=== PATIENT | female | born 1995 | race Caucasian/White ===

== ENCOUNTER → 2020-03-18 | Outpatient (CLI) | payer SELFPAY | LOC: M LABSMTC 14:09 | PROVIDERS: ATTEND Pediatrics | DX: Z20.828 Contact with and (suspected) exposure to other viral communicable diseases (principal) ==

== ENCOUNTER → 2021-10-21 | Outpatient (CLI) | payer BC ==
[2021-10-21 16:13] LABS: HEMATOCRIT 44.2 % (36.0-47.0); HEMOGLOBIN 14.5 g/dl (12.0-15.5); MEAN CORPUSCULAR HEMOGLOBIN 28.3 pg (27.0-33.0); MEAN CORPUSCULAR HGB CONC 32.8 g/dl (32.0-36.5); MEAN CORPUSCULAR VOLUME 86.3 fl (80.0-96.0); PLATELET COUNT, AUTOMATED 322 10^3/uL (150-450); RED BLOOD COUNT 5.12 10^6/uL (4.00-5.40); WHITE BLOOD COUNT 5.8 10^3/uL (4.0-10.0)
[2021-10-21 16:45] LABS: ALBUMIN 3.8 GM/DL (3.2-5.2); ALT/SGPT 31 U/L (12-78); BILIRUBIN,TOTAL 0.5 MG/DL (0.2-1.0); BLOOD UREA NITROGEN 10 MG/DL (7-18); CALCIUM LEVEL 9.4 MG/DL (8.5-10.1); CARBON DIOXIDE LEVEL 28 MEQ/L (21-32); CHLORIDE LEVEL 106 MEQ/L (98-107); CREATININE FOR GFR 0.92 MG/DL (0.55-1.30); FERRITIN 47 NG/ML (8-252); FREE T4 1.11 NG/DL (0.76-1.46); GLOMERULAR FILTRATION RATE > 60.0 (>60); GLUCOSE, FASTING 88 MG/DL (70-100); IRON (FE) 103 UG/DL (50-170); PERCENT SATURATION 31.9 % (13.2-45.0); POTASSIUM SERUM 4.4 MEQ/L (3.5-5.1); SODIUM LEVEL 141 MEQ/L (136-145); TOTAL IRON BINDING CAPACITY 323 UG/DL (250-450); TOTAL PROTEIN 7.4 GM/DL (6.4-8.2)
[2021-10-21 16:51] LABS: TOTAL 25(OH) VITAMIN D 32.1 NG/ML (30.0-100.0)
[2021-10-21 17:48] LABS: ATYPICAL LYMPH 1 % (0-5); LYMPHOCYTES 46 % (16-44); MONOCYTES 4 % (0-5); NEUTROPHILS 49 % (28-66); PLATELET ESTIMATE NORMAL (NORMAL)
== END ==
LOC: M WUC 13:07
PROVIDERS: ATTEND Physician Assistant
DX: N93.9 Abnormal uterine and vaginal bleeding, unspecified (principal); R63.5 Abnormal weight gain

== ENCOUNTER 2021-10-23 11:49 | Emergency (ER) | payer BC ==
[~2021-10-23] VITALS: Ht 165.1 cm; Wt 63.6 kg
[2021-10-23] MEDS ORDERED: MIRE1IUD IU (11:58)
[2021-10-23] MEDS ORDERED: ONDANSETRON 4MG/2ML VIAL IV ONE (13:00)
[2021-10-23] MEDS ORDERED: ONDANSETRON 4MG ORAL DISINTEGRATING TAB PO ONE (13:05)
[2021-10-23 13:53] LABS: MONO SCRN NEGATIVE (NEGATIVE)
[2021-10-23] MEDS ORDERED: LIDOCAINE 1% MDV 20ML VIAL SC ONE (14:00)
[2021-10-23] MEDS ORDERED: BOOSTRIX/ADACEL VACCINE (DIPHTH/PERTUSS/ACELL/TETANUS) 0.5ML SYR IM ONE (14:10)
[2021-10-23] MEDS ORDERED: ONDA4TAB6 PO (15:08)
[2021-10-23] MEDS ORDERED: CEPH500C PO (15:08)
[2021-10-23] MEDS ORDERED: NEOSPORIN OINT 0.9 GM PKT TOP ONE (15:10)
[2021-10-23] MEDS ORDERED: CEPHALEXIN 500 MG CAP PO ONE (15:10)
[2021-10-23 15:11] VITALS: BP 131/76
== END 2021-10-23 15:20 | disposition home or self-care (01) ==
LOC: M ED 11:49
DX: S01.419A Laceration without foreign body of unspecified cheek and temporomandibular area, initial encounter (principal); S00.81XA Abrasion of other part of head, initial encounter; S06.0X0A Concussion without loss of consciousness, initial encounter; W17.89XA Other fall from one level to another, initial encounter; W22.8XXA Striking against or struck by other objects, initial encounter

== ENCOUNTER → 2021-11-04 | Outpatient (CLI) | payer BC, OTHER ==
[~2021-11-04] MED LIST: CEPH500C PO; MIRE1IUD IU; ONDA4TAB6 PO
== END ==
LOC: M WHC 09:26
PROVIDERS: ATTEND Family Medicine
DX: E04.1 Nontoxic single thyroid nodule (principal)

== ENCOUNTER 2022-01-08 22:43 | Emergency (ER) | payer BC, OTHER ==
[~2022-01-08] VITALS: Ht 167.6 cm; Wt 65.9 kg
[2022-01-09 02:53] VITALS: BP 140/94
== END 2022-01-09 03:51 | disposition left against medical advice (07) ==
LOC: M ED 22:43
DX: Z53.21 Procedure and treatment not carried out due to patient leaving prior to being seen by health care provider (principal)

== ENCOUNTER → 2022-07-21 | Outpatient (CLI) | payer BC, OTHER | LOC: M WHC 09:28 | PROVIDERS: ATTEND Family Medicine | DX: M79.662 Pain in left lower leg (principal) ==

== ENCOUNTER → 2022-10-07 | Outpatient (REF) | payer BC | LOC: M LAB REF 15:23 | PROVIDERS: ATTEND Family Medicine | DX: N76.0 Acute vaginitis (principal) ==

== ENCOUNTER → 2022-10-20 | Outpatient (CLI) | payer BC | LOC: M RAD 10:27 | PROVIDERS: ATTEND Family Medicine | DX: M79.662 Pain in left lower leg (principal) ==

== ENCOUNTER → 2022-10-25 | Outpatient (REF) | LOC: M EMP 11:37 | PROVIDERS: ATTEND Family Medicine | DX: Z11.52 Encounter for screening for COVID-19 (principal) ==

== ENCOUNTER → 2023-02-01 | Outpatient (CLI) | payer BC | LOC: M PLAIMG 07:52 | PROVIDERS: ATTEND Family Medicine | DX: M54.12 Radiculopathy, cervical region (principal) ==

== ENCOUNTER → 2023-03-01 | Outpatient (REF) | payer BC | LOC: M LAB REF 09:32 | PROVIDERS: ATTEND Physician Assistant | DX: R19.7 Diarrhea, unspecified (principal) ==

== ENCOUNTER → 2023-03-06 | Outpatient (REF) | LOC: M EMP 07:57 | PROVIDERS: ATTEND Family Medicine | DX: Z11.52 Encounter for screening for COVID-19 (principal) ==

== ENCOUNTER → 2023-03-06 | Outpatient (REF) | LOC: M EMP 07:56 | PROVIDERS: ATTEND Family Medicine | DX: Z11.52 Encounter for screening for COVID-19 (principal) ==

== ENCOUNTER → 2023-04-18 | Outpatient (CLI) | payer BC ==
[~2023-04-18] MED LIST changes: +PROB250C PO; +PROHANCE 279.3MG/ML 15ML VIAL As Ordered ONE
== END ==
LOC: M RAD 08:56
PROVIDERS: ATTEND Internal Medicine Medical Oncology
DX: M79.89 Other specified soft tissue disorders (principal)
CPT/HCPCS: 73720; A9576

== ENCOUNTER → 2023-05-09 | Outpatient (REF) ==
[~2023-05-09] MED LIST changes: -PROHANCE 279.3MG/ML 15ML VIAL As Ordered ONE
== END ==
LOC: M EMP 07:45
PROVIDERS: ATTEND Family Medicine
DX: Z11.52 Encounter for screening for COVID-19 (principal)

== ENCOUNTER → 2023-05-30 | Outpatient (REF) | payer BC | LOC: M PLALAB 16:06 | PROVIDERS: ATTEND Advanced Practice Midwife | DX: Z12.4 Encounter for screening for malignant neoplasm of cervix (principal); Z01.419 Encounter for gynecological examination (general) (routine) without abnormal findings; Z77.9 Other contact with and (suspected) exposures hazardous to health ==

== ENCOUNTER → 2023-08-31 | Outpatient (CLI) | payer BC ==
[2023-08-31 15:42] LABS: HEMATOCRIT 44.1 % (36.0-47.0); HEMOGLOBIN 14.6 g/dl (12.0-15.5); MEAN CORPUSCULAR HEMOGLOBIN 29.1 pg (27.0-33.0); MEAN CORPUSCULAR HGB CONC 33.1 g/dl (32.0-36.5); PLATELET COUNT, AUTOMATED 305 10^3/uL (150-450); RED BLOOD COUNT 5.01 10^6/uL (4.00-5.40); WHITE BLOOD COUNT 10.6 10^3/uL (4.0-10.0)
[2023-08-31 16:47] LABS: HIV 1&2 SCREEN NEGATIVE (NEGATIVE)
[2023-08-31 16:55] LABS: HEPATITIS C VIRUS ABY INDEX < 0.02 INDEX (<0.8)
[2023-08-31 17:18] LABS: GC DNA AMPLIFICATION NEGATIVE (NEGATIVE)
== END ==
LOC: M PLALAB 12:47
PROVIDERS: ATTEND Advanced Practice Midwife
DX: Z34.01 Encounter for supervision of normal first pregnancy, first trimester (principal)

== ENCOUNTER → 2023-09-20 | Outpatient (CLI) | payer BC | LOC: M WHC 07:37 | PROVIDERS: ATTEND Advanced Practice Midwife | DX: Z34.01 Encounter for supervision of normal first pregnancy, first trimester (principal) ==

== ENCOUNTER → 2023-11-23 | Outpatient (CLI) | payer BC ==
[~2023-11-23] MED LIST changes: +ONDA-282 PO; -ONDA4TAB6 PO
== END ==
LOC: M WHC 08:54
PROVIDERS: ATTEND Advanced Practice Midwife
DX: Z34.02 Encounter for supervision of normal first pregnancy, second trimester (principal)

== ENCOUNTER → 2023-12-18 | Outpatient (CLI) | payer BC | LOC: M RAD 13:11 | PROVIDERS: ATTEND Orthopaedic Surgery | DX: M79.605 Pain in left leg (principal); M79.89 Other specified soft tissue disorders ==

== ENCOUNTER → 2024-01-01 | Outpatient (REF) | LOC: M EMP 10:35 | PROVIDERS: ATTEND Family Medicine | DX: Z11.52 Encounter for screening for COVID-19 (principal) ==

== ENCOUNTER → 2024-01-19 | Outpatient (CLI) | payer BC ==
[~2024-01-19] MED LIST changes: +CHOL650T PO; +PRENTAB9 PO; +TUMS500C PO
[2024-01-19 15:34] LABS: GLUCOSE CHALLENGE TEST 1 HOUR 140 MG/DL (LESS THAN 140); HEMOGLOBIN 13.2 g/dl (12.0-15.5); MEAN CORPUSCULAR HEMOGLOBIN 30.3 pg (27.0-33.0); MEAN CORPUSCULAR HGB CONC 34.7 g/dl (32.0-36.5); MEAN CORPUSCULAR VOLUME 87.2 fl (80.0-96.0); PLATELET COUNT, AUTOMATED 249 10^3/uL (150-450); RED BLOOD COUNT 4.36 10^6/uL (4.00-5.40); WHITE BLOOD COUNT 11.2 10^3/uL (4.0-10.0)
[2024-01-19 16:54] LABS: GC DNA AMPLIFICATION NEGATIVE (NEGATIVE)
[2024-01-20 17:09] LABS: HIV 1&2 SCREEN NEGATIVE (NEGATIVE)
[2024-01-20 17:17] LABS: HEPATITIS C VIRUS ABY INDEX < 0.02 INDEX (<0.8)
== END ==
LOC: M PLALAB 11:46
PROVIDERS: ATTEND Advanced Practice Midwife
DX: Z34.82 Encounter for supervision of other normal pregnancy, second trimester (principal); Z3A.00 Weeks of gestation of pregnancy not specified

== ENCOUNTER → 2024-01-23 | Outpatient (REF) | payer BC | LOC: M SFHCWAGY 12:30 | PROVIDERS: ATTEND Advanced Practice Midwife | DX: Z34.03 Encounter for supervision of normal first pregnancy, third trimester (principal) ==

== ENCOUNTER → 2024-01-24 | Outpatient (CLI) | payer BC | LOC: M LAB 07:36 | PROVIDERS: ATTEND Advanced Practice Midwife | DX: O99.810 Abnormal glucose complicating pregnancy (principal); Z3A.00 Weeks of gestation of pregnancy not specified ==

== ENCOUNTER 2024-01-30 18:13 | Outpatient (CLI) | payer BC ==
[~2024-01-30] VITALS: Ht 167.6 cm; Wt 83.6 kg
[2024-01-30] VITALS (13 sets, daily range): BP systolic 121–172; BP diastolic 64–94
[~2024-01-30 18:13] MED LIST changes: -CHOL650T PO; -PRENTAB9 PO; -TUMS500C PO
[2024-01-30] MEDS ORDERED: PRENTAB9 PO (18:30)
[2024-01-30] MEDS ORDERED: TUMS500C PO (18:30)
[2024-01-30] MEDS ORDERED: CHOL650T PO (18:31)
[2024-01-30] MEDS: NIFEdipine 10 MG CAP PO STA (18:58)
[2024-01-30 19:47] LABS: HEMATOCRIT 37.3 % (36.0-47.0); MEAN CORPUSCULAR HEMOGLOBIN 30.2 pg (27.0-33.0); MEAN CORPUSCULAR HGB CONC 34.9 g/dl (32.0-36.5); MEAN CORPUSCULAR VOLUME 86.5 fl (80.0-96.0); PLATELET COUNT, AUTOMATED 216 10^3/uL (150-450); RED BLOOD COUNT 4.31 10^6/uL (4.00-5.40); WHITE BLOOD COUNT 11.5 10^3/uL (4.0-10.0)
[2024-01-30 20:03] LABS: CREATININE,RANDOM URINE < 13.0 MG/DL; TOTAL PROTEIN,RANDOM URINE < 6.0 MG/DL (0.0-14.0)
[2024-01-30 20:12] LABS: URIC ACID 2.9 MG/DL (3.1-7.8)
[2024-01-30 20:15] LABS: ALT/SGPT 21 U/L (7.0-40); AST/SGOT 10 U/L (<34); BILIRUBIN,TOTAL 0.4 MG/DL (0.3-1.2); CREATININE FOR GFR 0.61 MG/DL (0.55-1.30); GLOMERULAR FILTRATION RATE > 60.0 (>60); LDH LACTATE DEHYDROGENASE 153 U/L (120-246)
[2024-01-30] MEDS: CALCIUM CARBONATE 500 MG CHEW U/D PO ONE (20:55)
[2024-01-30 20:56] LABS: ALBUMIN 2.8 G/DL (3.2-5.2); ALKALINE PHOSPHATASE 76 U/L (46-116); BLOOD UREA NITROGEN 11 MG/DL (9-23); CALCIUM LEVEL 10.2 MG/DL (8.5-10.1); CARBON DIOXIDE LEVEL 22 MMOL/L (20-31); CHLORIDE LEVEL 107 MMOL/L (98-107); GLUCOSE, FASTING 75 MG/DL (60-100); POTASSIUM SERUM 3.6 MMOL/L (3.5-5.1); SODIUM LEVEL 138 MMOL/L (136-145); TOTAL PROTEIN 6.3 G/DL (5.7-8.2)
[2024-01-30] MEDS: MAG Sulf (L&D) 4 GM/100 ML 4 GM in IV 1 EA IV ONE (23:09)
[2024-01-30] MEDS: BETAMETHASONE SOLUSPAN 6MG/ML 5ML VIAL IM SCH (23:10)
[2024-01-30] MEDS: MAG Sulf (OBGYN) 20GM/500ML 20,000 MG in IV 1 EA IV SCH (23:32)
[2024-01-31] MEDS ORDERED: ONDANSETRON 4MG 2ML VIAL IV ONE
== END 2024-01-30 23:46 | disposition short-term general hospital (02) ==
LOC: M LDO 18:13 → M LDI 18:13 → UNDOADMIN 19:01 → M LDO 23:46 → UNDODISIN 23:46
PROVIDERS: ATTEND Obstetrics & Gynecology
DX: O14.12 Severe pre-eclampsia, second trimester (principal); Z3A.28 28 weeks gestation of pregnancy
CPT/HCPCS: 36415; 59025; 80053; 82247; 82570; 83615; 83880; 84156; 84450; 84460; 84484; 84550; 85027; 87486; 87581; 87633; 87798; 93005; G0463; J0702; J3475

== ENCOUNTER → 2024-02-07 | Outpatient (CLI) | payer BC ==
[~2024-02-07] MED LIST changes: +CHOL650T PO; +PRENTAB9 PO; +TUMS500C PO
[2024-02-07 10:54] LABS: LDH LACTATE DEHYDROGENASE 137 U/L (120-246)
[2024-02-07 10:56] LABS: ALT/SGPT 16 U/L (7.0-40); AST/SGOT < 8 U/L (<34); BILIRUBIN,TOTAL 0.4 MG/DL (0.3-1.2); CREATININE FOR GFR 0.61 MG/DL (0.55-1.30); GLOMERULAR FILTRATION RATE > 60.0 (>60)
[2024-02-07 11:01] LABS: HEMATOCRIT 37.1 % (36.0-47.0); HEMOGLOBIN 12.6 g/dl (12.0-15.5); MEAN CORPUSCULAR HEMOGLOBIN 29.2 pg (27.0-33.0); MEAN CORPUSCULAR VOLUME 86.1 fl (80.0-96.0); PLATELET COUNT, AUTOMATED 239 10^3/uL (150-450); RED BLOOD COUNT 4.31 10^6/uL (4.00-5.40); WHITE BLOOD COUNT 11.7 10^3/uL (4.0-10.0)
[2024-02-07 11:32] LABS: TOTAL PROTEIN,RANDOM URINE 21.2 MG/DL (0.0-14.0)
[2024-02-07 11:37] LABS: CREATININE,RANDOM URINE 46.2 MG/DL
== END ==
LOC: M PLALAB 07:33
PROVIDERS: ATTEND Obstetrics & Gynecology
DX: O14.93 Unspecified pre-eclampsia, third trimester (principal); Z3A.00 Weeks of gestation of pregnancy not specified

== ENCOUNTER → 2024-02-14 | Outpatient (CLI) | payer BC ==
[2024-02-14 08:41] LABS: MEAN CORPUSCULAR HEMOGLOBIN 29.2 pg (27.0-33.0); MEAN CORPUSCULAR HGB CONC 33.3 g/dl (32.0-36.5); MEAN CORPUSCULAR VOLUME 87.6 fl (80.0-96.0); PLATELET COUNT, AUTOMATED 250 10^3/uL (150-450); RED BLOOD COUNT 4.45 10^6/uL (4.00-5.40); WHITE BLOOD COUNT 11.2 10^3/uL (4.0-10.0)
[2024-02-14 09:07] LABS: URIC ACID 4.2 MG/DL (3.1-7.8)
[2024-02-14 09:09] LABS: LDH LACTATE DEHYDROGENASE 151 U/L (120-246)
[2024-02-14 09:10] LABS: ALT/SGPT 22 U/L (7.0-40); AST/SGOT 9 U/L (<34); BILIRUBIN,TOTAL 0.4 MG/DL (0.3-1.2); CREATININE FOR GFR 0.67 MG/DL (0.55-1.30); GLOMERULAR FILTRATION RATE > 60.0 (>60)
[2024-02-14 09:11] LABS: CREATININE,RANDOM URINE 85.1 MG/DL
== END ==
LOC: M LAB 07:48
PROVIDERS: ATTEND Advanced Practice Midwife
DX: O14.90 Unspecified pre-eclampsia, unspecified trimester (principal)

== ENCOUNTER 2024-02-21 21:37 | Outpatient (CLI) | payer BC ==
[~2024-02-21] VITALS: Ht 167.6 cm; Wt 87.8 kg
[~2024-02-21 21:37] MED LIST changes: -ACET-897 PO; -LABE100T40 PO
[2024-02-21] MEDS ORDERED: LABE100T40 PO (21:58)
[2024-02-21] MEDS ORDERED: ACET-897 PO (21:58)
[2024-02-21] MEDS ORDERED: HOME MED LIST COMPLETE! XX SCH (22:00)
[2024-02-21 22:01] VITALS: BP 138/88
== END 2024-02-21 22:37 | disposition home or self-care (01) ==
LOC: M LDO 21:37
PROVIDERS: ATTEND Advanced Practice Midwife
DX: O13.3 Gestational [pregnancy-induced] hypertension without significant proteinuria, third trimester (principal); O14.93 Unspecified pre-eclampsia, third trimester; Z3A.32 32 weeks gestation of pregnancy
CPT/HCPCS: 59025; G0463

== ENCOUNTER → 2024-02-21 | Outpatient (CLI) | payer BC ==
[~2024-02-21] MED LIST changes: +ACET-897 PO; +LABE100T40 PO
[2024-02-21 17:59] LABS: HEMATOCRIT 36.3 % (36.0-47.0); HEMOGLOBIN 12.3 g/dl (12.0-15.5); MEAN CORPUSCULAR HEMOGLOBIN 29.6 pg (27.0-33.0); MEAN CORPUSCULAR HGB CONC 33.9 g/dl (32.0-36.5); MEAN CORPUSCULAR VOLUME 87.5 fl (80.0-96.0); PLATELET COUNT, AUTOMATED 228 10^3/uL (150-450); RED BLOOD COUNT 4.15 10^6/uL (4.00-5.40); WHITE BLOOD COUNT 12.8 10^3/uL (4.0-10.0)
[2024-02-21 18:18] LABS: CREATININE,RANDOM URINE 33.4 MG/DL
[2024-02-21 18:19] LABS: TOTAL PROTEIN,RANDOM URINE < 6.0 MG/DL (0.0-14.0)
[2024-02-21 18:20] LABS: ALBUMIN 2.4 G/DL (3.2-5.2); ALKALINE PHOSPHATASE 82 U/L (46-116); ALT/SGPT 17 U/L (7.0-40); AST/SGOT < 8 U/L (<34); BILIRUBIN,TOTAL 0.3 MG/DL (0.3-1.2); BLOOD UREA NITROGEN 9 MG/DL (9-23); CALCIUM LEVEL 9.5 MG/DL (8.5-10.1); CARBON DIOXIDE LEVEL 21 MMOL/L (20-31); CHLORIDE LEVEL 107 MMOL/L (98-107); CREATININE FOR GFR 0.66 MG/DL (0.55-1.30); GLOMERULAR FILTRATION RATE > 60.0 (>60); GLUCOSE, FASTING 62 MG/DL (60-100); POTASSIUM SERUM 3.9 MMOL/L (3.5-5.1); SODIUM LEVEL 136 MMOL/L (136-145)
== END ==
LOC: M PLALAB 16:16
PROVIDERS: ATTEND Obstetrics & Gynecology
DX: O14.93 Unspecified pre-eclampsia, third trimester (principal); Z3A.00 Weeks of gestation of pregnancy not specified

== ENCOUNTER 2024-02-25 23:26 | Observation (INO) | payer BC ==
[~2024-02-25] VITALS: Ht 167.6 cm; Wt 89.1 kg
[~2024-02-25 23:26] MED LIST changes: +ACET-897 PO; +LABE100T40 PO
[2024-02-25 23:45] VITALS: BP 171/107
[2024-02-26] VITALS (36 sets, daily range): BP systolic 97–165; BP diastolic 58–101
[2024-02-26] MEDS ORDERED: NIFEdipine 10 MG CAP As Ordered ONE (00:50)
[2024-02-26 00:54] LABS: HEMATOCRIT 35.2 % (36.0-47.0); HEMOGLOBIN 12.1 g/dl (12.0-15.5); MEAN CORPUSCULAR HEMOGLOBIN 29.5 pg (27.0-33.0); MEAN CORPUSCULAR HGB CONC 34.4 g/dl (32.0-36.5); MEAN CORPUSCULAR VOLUME 85.9 fl (80.0-96.0); PLATELET COUNT, AUTOMATED 214 10^3/uL (150-450); WHITE BLOOD COUNT 11.1 10^3/uL (4.0-10.0)
[2024-02-26 00:59] LABS: URIC ACID 4.2 MG/DL (3.1-7.8)
[2024-02-26 01:01] LABS: CREATININE,RANDOM URINE 20.8 MG/DL; LDH LACTATE DEHYDROGENASE 149 U/L (120-246)
[2024-02-26 01:02] LABS: ALBUMIN 2.4 G/DL (3.2-5.2); ALKALINE PHOSPHATASE 86 U/L (46-116); ALT/SGPT 21 U/L (7.0-40); AST/SGOT 11 U/L (<34); BILIRUBIN,TOTAL 0.3 MG/DL (0.3-1.2); BLOOD UREA NITROGEN 9 MG/DL (9-23); CALCIUM LEVEL 10.4 MG/DL (8.5-10.1); CARBON DIOXIDE LEVEL 22 MMOL/L (20-31); CHLORIDE LEVEL 110 MMOL/L (98-107); CREATININE FOR GFR 0.69 MG/DL (0.55-1.30); GLOMERULAR FILTRATION RATE > 60.0 (>60); GLUCOSE, FASTING 73 MG/DL (60-100); POTASSIUM SERUM 3.7 MMOL/L (3.5-5.1); SODIUM LEVEL 139 MMOL/L (136-145); TOTAL PROTEIN 5.8 G/DL (5.7-8.2); TOTAL PROTEIN,RANDOM URINE < 6.0 MG/DL (0.0-14.0)
[2024-02-26] MEDS ORDERED: NIFEdipine 30MG XL TAB PO STA (01:13)
[2024-02-26] MEDS: NIFEdipine 10 MG CAP PO SCH (01:35)
[2024-02-26 01:37] LABS: THYROID STIMULATING HORMONE 5.504 uIU/ML (0.55-4.78)
[2024-02-26 01:38] LABS: FREE T4 0.97 NG/DL (0.89-1.76)
[2024-02-26] MEDS: PANTOPRAZOLE 40MG VIAL IV ONE (04:01)
[2024-02-26] MEDS: ACETAMINOPHEN 500 MG TAB PO ONE (08:28)
[2024-02-26] MEDS: NIFEdipine 30MG XL TAB PO STA (11:18)
[2024-02-26] MEDS ORDERED: NIFE1TAB52 PO (13:14)
[2024-03-01 09:46] LABS: METANEPHRINE PLASMA < 25 pg/mL (<=57); NORMETANEPHRINE PLASMA 29 pg/mL (<=148); TOTAL FREE 29 pg/mL (<=205)
[2024-03-05 03:07] LABS: CREATININE,RANDOM URINE 19.9 mg/dL (Not Estab.); URINE METANEPHR/CREAT RATIO 0.2 (0.0-1.0)
== END 2024-02-26 13:37 | disposition home or self-care (01) ==
LOC: M LDO 23:26 → M LDI 23:27 → M LDO 02-26 13:37
PROVIDERS: ADMIT Obstetrics & Gynecology; ATTEND Obstetrics & Gynecology
DX: O14.93 Unspecified pre-eclampsia, third trimester (principal); R60.9 Edema, unspecified; Z3A.32 32 weeks gestation of pregnancy
CPT/HCPCS: 36415; 59025; 80053; 82384; 82570; 83615; 83835; 84156; 84439; 84443; 84550; 85027; 96374; G0463; J2470

== ENCOUNTER 2024-02-28 23:09 | Outpatient (CLI) | payer BC ==
[~2024-02-28] VITALS: Ht 167.6 cm; Wt 88.0 kg
[~2024-02-28 23:09] MED LIST changes: +NIFE1TAB52 PO
[2024-02-28] MEDS ORDERED: HOME MED LIST COMPLETE! XX SCH (23:20)
[2024-02-28 23:37] VITALS: BP 142/102
[2024-02-28 23:53] VITALS: BP 140/98
[2024-02-29 00:08] VITALS: BP 145/99
== END 2024-02-29 00:30 | disposition home or self-care (01) ==
LOC: M LDO 23:09
PROVIDERS: ATTEND Advanced Practice Midwife
DX: O14.93 Unspecified pre-eclampsia, third trimester (principal); Z3A.33 33 weeks gestation of pregnancy; Z79.899 Other long term (current) drug therapy
CPT/HCPCS: 59025; G0463

== ENCOUNTER 2024-02-29 12:58 | Inpatient (IN) | payer BC ==
[2024-02-29] VITALS (7 sets, daily range): BP systolic 109–158; BP diastolic 58–99; O2SAT 98
[~2024-02-29] VITALS: Ht 167.6 cm; Wt 88.0 kg
[2024-02-29] MEDS ORDERED: HOME MED LIST COMPLETE! XX SCH (13:25)
[2024-02-29 14:32] LABS: HEMOGLOBIN 13.3 g/dl (12.0-15.5); MEAN CORPUSCULAR HEMOGLOBIN 29.1 pg (27.0-33.0); MEAN CORPUSCULAR HGB CONC 34.1 g/dl (32.0-36.5); MEAN CORPUSCULAR VOLUME 85.3 fl (80.0-96.0); PLATELET COUNT, AUTOMATED 276 10^3/uL (150-450); RED BLOOD COUNT 4.57 10^6/uL (4.00-5.40); WHITE BLOOD COUNT 11.7 10^3/uL (4.0-10.0)
[2024-02-29] MEDS: BETAMETHASONE SOLUSPAN 6MG/ML 5ML VIAL IM SCH (14:36)
[2024-02-29 14:42] LABS: TOTAL PROTEIN,RANDOM URINE 17.1 MG/DL (0.0-14.0)
[2024-02-29 14:45] LABS: LDH LACTATE DEHYDROGENASE 237 U/L (120-246)
[2024-02-29 14:47] LABS: ALBUMIN 2.7 G/DL (3.2-5.2); ALKALINE PHOSPHATASE 100 U/L (46-116); ALT/SGPT 29 U/L (7.0-40); AST/SGOT 23 U/L (<34); BILIRUBIN,TOTAL 0.4 MG/DL (0.3-1.2); BLOOD UREA NITROGEN 8 MG/DL (9-23); CALCIUM LEVEL 9.5 MG/DL (8.5-10.1); CARBON DIOXIDE LEVEL 21 MMOL/L (20-31); CHLORIDE LEVEL 110 MMOL/L (98-107); CREATININE FOR GFR 0.64 MG/DL (0.55-1.30); GLOMERULAR FILTRATION RATE > 60.0 (>60); GLUCOSE, FASTING 72 MG/DL (60-100); POTASSIUM SERUM 4.2 MMOL/L (3.5-5.1); SODIUM LEVEL 138 MMOL/L (136-145); TOTAL PROTEIN 6.7 G/DL (5.7-8.2)
[2024-02-29] MEDS ORDERED: diphenhydrAMINE 50MG/ML VIAL IV PRN (20:30)
[2024-02-29] MEDS: CALCIUM CARBONATE 500 MG CHEW U/D PO PRN (23:07)
[2024-03-01] VITALS (13 sets, daily range): BP systolic 113–158; BP diastolic 55–94; O2SAT 97–99
[2024-03-01 06:18] LABS: HEMATOCRIT 35.4 % (36.0-47.0); HEMOGLOBIN 12.4 g/dl (12.0-15.5); MEAN CORPUSCULAR HEMOGLOBIN 29.7 pg (27.0-33.0); MEAN CORPUSCULAR VOLUME 84.9 fl (80.0-96.0); PLATELET COUNT, AUTOMATED 258 10^3/uL (150-450); RED BLOOD COUNT 4.17 10^6/uL (4.00-5.40); WHITE BLOOD COUNT 15.5 10^3/uL (4.0-10.0)
[2024-03-01 06:55] LABS: ALBUMIN 2.4 G/DL (3.2-5.2); ALKALINE PHOSPHATASE 92 U/L (46-116); ALT/SGPT 26 U/L (7.0-40); AST/SGOT 13 U/L (<34); BILIRUBIN,TOTAL 0.3 MG/DL (0.3-1.2); BLOOD UREA NITROGEN 10 MG/DL (9-23); CALCIUM LEVEL 9.9 MG/DL (8.5-10.1); CARBON DIOXIDE LEVEL 19 MMOL/L (20-31); CHLORIDE LEVEL 110 MMOL/L (98-107); CREATININE FOR GFR 0.64 MG/DL (0.55-1.30); GLOMERULAR FILTRATION RATE > 60.0 (>60); GLUCOSE, FASTING 108 MG/DL (60-100); POTASSIUM SERUM 4.2 MMOL/L (3.5-5.1); SODIUM LEVEL 137 MMOL/L (136-145)
[2024-03-01] MEDS: NIFEdipine 30MG XL TAB PO SCH (10:04)
[2024-03-02] VITALS (9 sets, daily range): BP systolic 129–145; BP diastolic 71–94; O2SAT 97
[2024-03-02] MEDS: ACETAMINOPHEN 500 MG TAB PO PRN (00:18)
[2024-03-02 14:15] LABS: TOTAL PROTEIN 24 HOUR URINE 573.3 MG/24HR (50-80); URINE TOTAL PROTEIN 14.7 MG/DL (0-14)
[2024-03-03] VITALS (12 sets, daily range): BP systolic 125–153; BP diastolic 79–99; O2SAT 98
[2024-03-03 11:23] LABS: HEMATOCRIT 34.6 % (36.0-47.0); HEMOGLOBIN 11.9 g/dl (12.0-15.5); MEAN CORPUSCULAR HGB CONC 34.4 g/dl (32.0-36.5); MEAN CORPUSCULAR VOLUME 87.2 fl (80.0-96.0); PLATELET COUNT, AUTOMATED 248 10^3/uL (150-450); RED BLOOD COUNT 3.97 10^6/uL (4.00-5.40); WHITE BLOOD COUNT 12.2 10^3/uL (4.0-10.0)
[2024-03-03 11:42] LABS: URIC ACID 3.9 MG/DL (3.1-7.8)
[2024-03-03 11:44] LABS: LDH LACTATE DEHYDROGENASE 139 U/L (120-246)
[2024-03-03 11:45] LABS: ALBUMIN 2.4 G/DL (3.2-5.2); ALKALINE PHOSPHATASE 84 U/L (46-116); ALT/SGPT 16 U/L (7.0-40); AST/SGOT < 8 U/L (<34); BILIRUBIN,TOTAL 0.3 MG/DL (0.3-1.2); BLOOD UREA NITROGEN 11 MG/DL (9-23); CALCIUM LEVEL 9.4 MG/DL (8.5-10.1); CARBON DIOXIDE LEVEL 24 MMOL/L (20-31); CHLORIDE LEVEL 110 MMOL/L (98-107); CREATININE FOR GFR 0.71 MG/DL (0.55-1.30); GLOMERULAR FILTRATION RATE > 60.0 (>60); GLUCOSE, FASTING 94 MG/DL (60-100); POTASSIUM SERUM 3.6 MMOL/L (3.5-5.1); SODIUM LEVEL 139 MMOL/L (136-145); TOTAL PROTEIN 5.9 G/DL (5.7-8.2)
[2024-03-04] VITALS (7 sets, daily range): BP systolic 115–141; BP diastolic 65–95; O2SAT 97–98
[2024-03-04] MEDS: PRENATAL VITAMINS CHEWABLE TABLET PO SCH (09:32)
[2024-03-05] VITALS (8 sets, daily range): BP systolic 137–153; BP diastolic 89–99
[2024-03-05 10:47] LABS: HEMATOCRIT 37.8 % (36.0-47.0); HEMOGLOBIN 13.1 g/dl (12.0-15.5); MEAN CORPUSCULAR HEMOGLOBIN 29.9 pg (27.0-33.0); MEAN CORPUSCULAR HGB CONC 34.7 g/dl (32.0-36.5); MEAN CORPUSCULAR VOLUME 86.3 fl (80.0-96.0); PLATELET COUNT, AUTOMATED 295 10^3/uL (150-450); RED BLOOD COUNT 4.38 10^6/uL (4.00-5.40); WHITE BLOOD COUNT 13.8 10^3/uL (4.0-10.0)
[2024-03-05 11:41] LABS: HEPATITIS C VIRUS ABY INDEX < 0.02 INDEX (<0.8)
[2024-03-05] MEDS ORDERED: OXYTOCIN DRIP 30 UNITS in IV 1 EA IV PRN (12:40)
[2024-03-05] MEDS ORDERED: ceFAZolin SOD 2 GM in IV 1 EA IV ONE (12:40)
[2024-03-05] MEDS ORDERED: LIDOCAINE 1% MDV 20ML VIAL INFIL PRN (12:40)
[2024-03-05] MEDS ORDERED: TRANEXAMIC ACID INJection 1,000 MG in NS 100 ML IV PRN (12:40)
[2024-03-05] MEDS ORDERED: BICITRA 30ML SOLN UDC PO ONE (12:40)
[2024-03-05] MEDS ORDERED: AZITHROMYCIN INJ 500 MG, VIAL MATE ADAPTER 1 EACH in NS 250 ML IV ONE (12:40)
[2024-03-05] MEDS ORDERED: CARBOPROST TROMETHAMINE 250 MCG/ML AMP IM PRN (12:40)
[2024-03-05] MEDS: LR 1,000 ML IV SCH (13:04)
== END 2024-03-05 17:38 | disposition short-term general hospital (02) | DRG 566 ==
LOC: M LDO 12:58 → M LDI 13:58 → OBSVTOIN 15:13 → M OBS 03-03 12:05 → M LDI 03-03 18:49
PROVIDERS: ADMIT Obstetrics & Gynecology; ATTEND Obstetrics & Gynecology
DX: O14.13 Severe pre-eclampsia, third trimester (principal); Z3A.33 33 weeks gestation of pregnancy; O41.03X0 Oligohydramnios, third trimester, not applicable or unspecified

== ENCOUNTER → 2024-06-05 | Outpatient (REF) | payer BC | LOC: M LAB REF 16:56 | PROVIDERS: ATTEND Family Medicine | DX: N76.0 Acute vaginitis (principal) ==

== ENCOUNTER → 2024-06-13 | Outpatient (REF) | payer BC | LOC: M LAB REF 17:02 | PROVIDERS: ATTEND Family Medicine | DX: N76.0 Acute vaginitis (principal) ==

== ENCOUNTER → 2024-06-29 | Outpatient (REF) | payer BC | LOC: M LAB REF 17:03 | PROVIDERS: ATTEND Family Medicine | DX: B80 Enterobiasis (principal) ==

== ENCOUNTER → 2024-07-16 | Outpatient (REF) | payer BC | LOC: M LAB REF 17:12 | PROVIDERS: ATTEND Family Medicine | DX: N76.0 Acute vaginitis (principal) ==

== ENCOUNTER → 2024-08-01 | Outpatient (REF) | payer BC | LOC: M SFHCWAGY 16:57 | PROVIDERS: ATTEND Advanced Practice Midwife | DX: N89.8 Other specified noninflammatory disorders of vagina (principal) ==

== ENCOUNTER → 2024-08-16 | Outpatient (REF) | payer BC | LOC: M LAB REF 15:44 | PROVIDERS: ATTEND Family Medicine | DX: L29.0 Pruritus ani (principal) ==

== ENCOUNTER → 2024-08-17 | Outpatient (REF) | payer BC | LOC: M LAB REF 15:47 | PROVIDERS: ATTEND Family Medicine | DX: L29.0 Pruritus ani (principal) ==

== ENCOUNTER → 2024-08-18 | Outpatient (REF) | payer BC | LOC: M LAB REF 15:48 | PROVIDERS: ATTEND Family Medicine | DX: L29.0 Pruritus ani (principal) ==

== ENCOUNTER → 2024-08-19 | Outpatient (REF) | payer BC | LOC: M LAB REF 15:39 | PROVIDERS: ATTEND Family Medicine | DX: R19.5 Other fecal abnormalities (principal) ==

== ENCOUNTER → 2024-08-23 | Outpatient (REF) | payer BC | LOC: M LAB REF 17:07 | PROVIDERS: ATTEND Family Medicine | DX: L29.0 Pruritus ani (principal) ==

== ENCOUNTER → 2024-08-24 | Outpatient (REF) | payer BC | LOC: M LAB REF 17:05 | PROVIDERS: ATTEND Family Medicine | DX: L29.0 Pruritus ani (principal) ==

== ENCOUNTER → 2024-08-25 | Outpatient (REF) | payer BC | LOC: M LAB REF 17:04 | PROVIDERS: ATTEND Family Medicine | DX: L29.0 Pruritus ani (principal) ==

== ENCOUNTER → 2024-12-05 | Outpatient (REF) | LOC: M EMP 10:21 | PROVIDERS: ATTEND Family Medicine | DX: Z11.52 Encounter for screening for COVID-19 (principal) ==

== ENCOUNTER → 2025-02-28 | Outpatient (REF) | payer BC | LOC: M SFHCWAGY 17:25 | PROVIDERS: ATTEND Advanced Practice Midwife | DX: L29.2 Pruritus vulvae (principal) ==

== ENCOUNTER → 2025-03-19 | Outpatient (CLI) | payer BC ==
[2025-03-19 10:37] LABS: BASO # 0.1 10^3/uL (0.0-0.2); BASO % 1.0 % (0.0-1.0); EOS # 0.2 10^3/uL (0.0-0.5); EOS % 2.0 % (0.0-3.0); LYMPH # 2.3 10^3/uL (1.5-5.0); LYMPH % 30.7 % (24.0-44.0); MONO # 0.4 10^3/uL (0.0-0.8); MONO % 5.4 % (2.0-8.0); NEUTROPHILS # 4.5 10^3/uL (1.5-8.5); NEUTROPHILS % 60.6 % (36.0-66.0); PLATELET COUNT, AUTOMATED 331 10^3/uL (150-450)
[2025-03-19 10:46] LABS: ESTIMATED AVERAGE GLUCOSE 105.0 MG/DL (60-110)
[2025-03-19 11:02] LABS: ALT/SGPT 24 U/L (7.0-40); AST/SGOT 19 U/L (<34); CALCIUM LEVEL 9.4 MG/DL (8.5-10.1); CARBON DIOXIDE LEVEL 27 MMOL/L (20-31); CHLORIDE LEVEL 106 MMOL/L (98-107); CHOLESTEROL LEVEL 222 MG/DL (<200); CHOLESTEROL RISK RATIO 3.92 (<5); CREATININE FOR GFR 0.87 MG/DL (0.55-1.30); GLOMERULAR FILTRATION RATE > 90.0 (>60); LDL CHOLESTEROL 154.7 MG/DL (<100); NON-HDL-C 165.5 MG/DL; POTASSIUM SERUM 4.6 MMOL/L (3.5-5.1); SODIUM LEVEL 142 MMOL/L (136-145); TRIGLYCERIDES LEVEL 54 MG/DL (<150)
[2025-03-19 11:03] LABS: FREE T4 1.21 NG/DL (0.89-1.76)
== END ==
LOC: M LAB 09:29
PROVIDERS: ATTEND Family Medicine
DX: Z13.29 Encounter for screening for other suspected endocrine disorder (principal); Z13.220 Encounter for screening for lipoid disorders; Z13.0 Encounter for screening for diseases of the blood and blood-forming organs and certain disorders involving the immune mechanism

== ENCOUNTER → 2025-03-26 | Outpatient (CLI) | payer BC | LOC: M PLAIMG 14:58 | PROVIDERS: ATTEND Nurse Practitioner Adult Health | DX: R06.02 Shortness of breath (principal) ==